=== PATIENT | male | born 1990 | race Caucasian/White ===

== ENCOUNTER 2018-05-25 21:22 | Emergency (ER) | payer BC ==
[~2018-05-25] VITALS: Ht 177.8 cm; Wt 81.8 kg
[2018-05-25 21:34] VITALS: BP 169/91; PULSE 121; TEMP 97.8
[2018-05-25] MEDS ORDERED: PRILOSEC10 MG PO (23:18)
[2018-05-25] MEDS ORDERED: CARAFATE S1 GM/10 ML PO (23:58)
== END 2018-05-25 23:59 | disposition home or self-care (01) ==
LOC: COL.ER 21:22
DX: K21.9 Gastro-esophageal reflux disease without esophagitis (principal)